=== PATIENT | female | born 1980 | race Two or more races ===

== ENCOUNTER 2017-10-29 04:14 | Emergency (ER) | payer MEDICAID ==
[~2017-10-29] VITALS: Ht 165.1 cm; Wt 92.5 kg
[2017-10-29] MEDS ORDERED: NKM (04:23)
[2017-10-29] MEDS ORDERED: Ipratropium 0.02% Inh Soln 2.5ml UD HHN ONE (04:45)
[2017-10-29] MEDS ORDERED: Albuterol ud Inhalation HHN ONE (04:45)
[2017-10-29] MEDS ORDERED: PREDNISONE20 MG ORAL (05:19)
[2017-10-29 05:30] VITALS: BP 142/91
[2017-10-29 05:42] VITALS: BP 152/84
--- NOTE | 2017-10-29 06:05 | Emergency Room Report ---
History of Present Illness General Chief Complaint: Upper Respiratory Illness Source: Patient Present Illness HPI 36-year-old female presents ED complaining of cough and difficulty breathing. Started 4 days ago. Was seen by her PMD and was prescribed Z-Vishnu and albuterol and cough syrup. States that the medications are not helping. States cough is dry. Denies fevers or chills. Denies chest pain. States that she did not use the inhaler. No other aggravating relieving factors. Denies any other associated symptoms Allergies: Coded Allergies: No Known Allergies (Unverified , 10/29/17) Patient History Past Medical History: none Past Surgical History: none Pertinent Family History: none Social History: Denies: smoking, alcohol use, drug use Last Menstrual Period: October Now: No Immunizations: UTD Reviewed Nursing Documentation: PMH: Agreed; PSxH: Agreed Nursing Documentation-PMH Past Medical History: No Stated History Review of Systems All Other Systems: negative except mentioned in HPI Physical Exam Vital Signs Date Time Temp Pulse Resp B/P (MAP) Pulse Ox O2 Delivery O2 Flow Rate FiO2 10/29/17 04:15 98.3 81 16 152/84 98 Room Air 98.2 10/29/17 04:48 21 Sp02 EP Interpretation: reviewed, normal General Appearance: no apparent distress, alert, GCS 15, non-toxic Head: normocephalic Eyes: bilateral eye normal inspection, bilateral eye PERRL ENT: normal ENT inspection Neck: normal inspection Respiratory: chest non-tender, lungs clear, normal breath sounds, speaking full sentences, wheezing Cardiovascular #1: regular rate, rhythm, no edema Gastrointestinal: normal inspection Rectal: deferred Musculoskeletal: back normal Neurologic: normal inspection Psychiatric: normal inspection Skin: normal inspection Lymphatic: normal inspection Medical Decision Making Diagnostic Impression: Primary Impression: Bronchitis ER Course Hospital Course 36-year-old female presents to ED complaining of cough, SOB. currently on abx Differential diagnoses include: URI, bronchitis, asthma/COPD, pneumonia Clinical course Patient placed on stretcher. After initial history and physical I ordered prednisone and nebulizer treatment. Upon reassessment patient states cough and symptoms have improved. Findings consistent with bronchitis. I'll prescribe prednisone. Encouraged patient to use her inhaler as directed. Diagnosis - bronchitis Stable and discharged home with prescriptions for Rx prednisone. use inhaler as directed. Instructed to followup with PMD. Return to ED if symptoms recur or worsen Last Vital Signs Date Time Temp Pulse Resp B/P (MAP) Pulse Ox O2 Delivery O2 Flow Rate FiO2 10/29/17 05:42 98.3 16 152/84 99 Room Air 21 98.2 10/29/17 05:30 67 Status: improved Disposition: HOME, SELF-CARE Condition: Stable Scripts Prednisone* (PREDNISONE*) 20 Mg Tablet 40 MG ORAL DAILY, #10 TAB Prov: Daren Lewis MD 10/29/17 Patient Instructions: Acute Bronchitis, [id number] Daren Lewis MD Oct 29, 2017 06:05
== END 2017-10-29 05:44 | disposition home or self-care (01) ==
LOC: EMR 04:39
DX: J40 Bronchitis, not specified as acute or chronic (principal)
CPT/HCPCS: 94640; 94664; 99283; J7512